=== PATIENT | female | born 1975 | race Hispanic/Latino ===

== ENCOUNTER 2018-05-23 07:46 | Day surgery (SDC) | payer MEDICAID ==
[~2018-05-23] VITALS: Ht 157.5 cm; Wt 60.3 kg
[~2018-05-23 07:46] MED LIST: CETI10CA5 PO; ESOM40SU PO; L.AC1CAP6 PO; SERT100T PO; SODIUM CHLORIDE 0.9% 1000ML 1,000 ML IV ONE; SOLI5 PO
[2018-05-23 09:59] VITALS: BP 81/34
[2018-05-23 10:05] VITALS: BP 86/36
[2018-05-23 10:10] VITALS: BP_SYST 107; BP_DIAS 55; BP_DIAS 63
[2018-05-23 10:25] VITALS: BP 122/58
[2018-05-23 10:35] VITALS: BP 122/58
== END 2018-05-23 10:35 | disposition home or self-care (01) ==
LOC: DAH 07:46
PROVIDERS: ATTEND Internal Medicine Gastroenterology
DX: K29.50 Unspecified chronic gastritis without bleeding (principal); K31.7 Polyp of stomach and duodenum; K44.9 Diaphragmatic hernia without obstruction or gangrene; K21.9 Gastro-esophageal reflux disease without esophagitis; F32.9 Major depressive disorder, single episode, unspecified; Z98.890 Other specified postprocedural states; Z79.899 Other long term (current) drug therapy; J30.9 Allergic rhinitis, unspecified; K31.9 Disease of stomach and duodenum, unspecified
CPT/HCPCS: 36415; 43239; 43251; 84702; 88305; A4606; J7030